=== PATIENT | female | born 1985 | race Two or more races ===

== ENCOUNTER 2019-06-26 12:41 | Inpatient (IN) | payer OTHER ==
[~2019-06-26] VITALS: Ht 162.6 cm; Wt 97.5 kg
[2019-06-26] VITALS (10 sets, daily range): BP systolic 102–123; BP diastolic 49–75
[~2019-06-26 12:41] MED LIST: Chloraseptic Spray 20mL Bottle ORAL PRN; Cyclobenzaprine 10mg Tab ORAL PRN; HYDROcodone/Acetamin 10/325 tab ORAL PRN; HYDROcodone/Acetamin 5/325 tab ORAL PRN; Hydromorphone 0.5mg/0.5ml inj IVP PRN; Ketorolac 30mg Inj ONE; Lacri-Lube Opth Oint 3.5gm ONE; Lidocaine 1% MPF 10mg/ml 5ml ONE; Midazolam 2mg/2ml Inj ONE; Milk of Magnesia 30ml Ud ORAL PRN; Rocuronium Bromide 50mg/5ml Inj IV ONE; ceFAZolin sod 1 GM in NS 55 ML IVPB ONE; fentaNYL 100 mcg/2 mL IV ONE
[2019-06-26] MEDS ORDERED: Thrombin 5000 units TOPIC ONE (12:49)
[2019-06-26] MEDS ORDERED: Vancomycin 1gm vial IVPB ONE (12:49)
[2019-06-26] MEDS ORDERED: Bacitracin 50000 Units Vial ONE (12:50)
[2019-06-26] MEDS ORDERED: Gelfoam Size TOPIC ONE (12:50)
[2019-06-26] MEDS ORDERED: Bupivacaine w/Epi 0.5% 30ml Vial INJ ONE (12:50)
[2019-06-26] MEDS ORDERED: TRAMADOL HCL50 MG ORAL (13:23)
[2019-06-26] MEDS ORDERED: ROBAXIN-500MG ORAL (13:23)
[2019-06-26] MEDS ORDERED: Midazolam 2mg/2ml Inj ONE (13:30)
[2019-06-26] MEDS ORDERED: Sterile Water Irrig 1000ml IRRIG ONE (13:30)
[2019-06-26] MEDS ORDERED: LR 1000ml ONE (13:30)
[2019-06-26] MEDS ORDERED: Glycopyrrolate 0.2mg/ml 1ml Vial ONE (13:30)
[2019-06-26] MEDS ORDERED: Succinylcholine 20mg/ml 10ml vial ONE (13:30)
[2019-06-26] MEDS ORDERED: Propofol 1,000mg/ 100ml btl IV ONE (13:30)
[2019-06-26] MEDS ORDERED: Neostigmine 1mg/ml 10ml Inj ONE (13:30)
--- NOTE | 2019-06-26 13:37 | Pre-Procedure Note/Attestation ---
Pre-Procedure Note/Attestation Complete Prior to Procedure Procedure Narrative: l5s1 laminectomy and decompression Indications for Procedure Pre-Operative Diagnosis: l5s1 lipomatosis/stenosis Attestation I attest that I discussed the nature of the procedure; its benefits; risks and complications; and alternatives (and the risks and benefits of such alternatives ), prior to the procedure, with the patient (or the patient's legal public utilities sales representative). I attest that, if there was a reasonable possibility of needing a blood transfusion, the patient (or the patient's legal public utilities sales representative) was given the [facility] standardized written summary, pursuant to the Rashard Anay Blood Safety Act ([place] Health and Safety Code # 1645, as amended). I attest that I re-evaluated the patient just prior to the surgery and that there has been no change in the patient's H&P, except as documented below: Cesar Jones MD Jun 26, 2019 13:37
[2019-06-26] MEDS ORDERED: NS Irrig 1000ml IRRIG ONE ×2 (14:05→14:09)
[2019-06-26] MEDS ORDERED: Morphine Sulfate 10mg/ml Inj ONE (14:33)
[2019-06-26] MEDS ORDERED: Sodium Chloride 10ml vial INJ ONE (14:34)
[2019-06-26] MEDS ORDERED: LR 1000ml 1,000 ML IVLG SCH (14:41)
[2019-06-26] MEDS ORDERED: Ketorolac 30mg Inj IV PRN (14:45)
[2019-06-26] MEDS ORDERED: Acetaminophen (Non formulary) 100 ML IV ONE (14:45)
[2019-06-26] MEDS ORDERED: Metoclopramide 10mg/2ml Inj IVP PRN (14:45)
[2019-06-26] MEDS ORDERED: Hydromorphone 0.5mg/0.5ml inj IVP PRN (14:45)
[2019-06-26] MEDS ORDERED: Meperidine 50mg/ml Inj(FOR RIGORS ONLY) IVP PRN (14:45)
[2019-06-26] MEDS ORDERED: DiphenhydrAMINE 50mg/ml Inj IVP PRN (14:45)
[2019-06-26] MEDS ORDERED: Midazolam 2mg/2ml Inj IVP PRN (14:45)
--- NOTE | 2019-06-26 14:50 | Anethesia Preoperative Eval ---
Anesthesia Pre-op PMH/ROS General Date of Evaluation: Jun 26, 2019 Time of Evaluation: 13:15 Anesthesiologist: Kaycee ASA Score: ASA 2 Mallampati Score Class I : Soft palate, uvula, fauces, pillars visible Class II: Soft palate, uvula, fauces visible Class III: Soft palate, base of uvula visible Class IV: Only hard plate visible Mallampati Classification: Class II Surgeon: Karen Diagnosis: Lumbar radiculopathy Surgical Procedure: L5-S1 laminotomy Anesthesia History: none Family History: no anesthesia problems Allergies: Coded Allergies: NAPROXEN (Verified Adverse Reaction, Severe, dizziness, drowsiness, sleepiness, 06/26/19) Medications: see eMAR Patient NPO?: Yes NPO Date: Jun 25, 2019 NPO Time: 2329 Past Medical History Cardiovascular: Denies: HTN, CAD, SC, valve dz, arrhythmia, other Pulmonary: Denies: asthma, COPD, EU[place], other Gastrointestinal/Genitourinary: Reports: GERD; Denies: CRI, ESRD, other Neurologic/Psychiatric: Reports: depression/anxiety, other - chronic pain Endocrine: Denies: DM, hypothyroidism, steroids, other HEENT: Denies: cataract (L), cataract (R), glaucoma, [place] (L), [place] (R), other Hematology/Immune: Denies: anemia, DVT, bleeding disorder, other Musculoskeletal/Integumentary: Denies: OA, RA, DJD, DDD, edema, other Other: obesity PMH Narrative: as above PSxH Narrative: Cholecystectomy Anesthesia Pre-op Phys. Exam Physician Exam Last Vital Signs Date Time Temp Pulse Resp B/P (MAP) Pulse Ox O2 Delivery O2 Flow Rate FiO2 06/26/19 13:31 Room Air 06/26/19 13:24 98.0 81 18 123/75 (91) 97 Constitutional: NAD Neurologic: CN 2-12 intact Cardiovascular: RRR Respiratory: CTA Gastrointestinal: S/NT/ND Airway Exam Mallampati Score: Class II MO: full Neck: flexible ROM: full Teeth: intact Dentures: no upper, no lower Anesthesia Pre-op A/P Labs see chart Urine Test Test 06/26/19 13:00 Urine HCG, Qualitative Negative (NEGATIVE) Studies Pre-op Studies: EKG - SR Risk Assessment & Plan Assessment: ASA 2 Plan: GA with ETT neuromonitoring Status Change Before Surgery: No Pre-Antibiotics Drug: Ancef 2gr. Given Within 1 Hr of Incision: Yes Time Given: 14:22 Jose G Benoit MD Jun 26, 2019 14:50
--- NOTE | 2019-06-26 15:42 | Brief Operative Note ---
Immediate Post Operative Note Operative Note Pre-op Diagnosis: l5s1 lipomatosis/stenosis Procedure: l5 and S1 B laminectomy Post-op Diagnosis: same as pre-op Findings: consistent w/pre-op dx studies Surgeon: tarik Motion And Time Study Teacher: kenia saha Anesthesiologist: lasha Anesthesia: general Specimen: none Complications: none Condition: stable Fluids: 1L Estimated Blood Loss: minimal Drains: hemovac Implant(s) used?: No Cesar Jones MD Jun 26, 2019 15:42
[2019-06-26] MEDS ORDERED: Milk of Magnesia 30ml Ud ORAL PRN (15:45)
--- NOTE | 2019-06-26 16:14 | Immediate Post-Op Evaluation ---
Immediate Post-Op Evalulation Immediate Post-Op Evalulation Procedure: L5-S1 laminotomy with discectomy and decompression Date of Evaluation: Jun 26, 2019 Time of Evaluation: 16:13 IV Fluids: 1000 Blood Products: none Estimated Blood Loss: 50 Urinary Output: none Blood Pressure Systolic: 112 Blood Pressure Diastolic: 64 Pulse Rate: 78 Respiratory Rate: 22 O2 Sat by Pulse Oximetry: 99 Temperature (Fahrenheit): 98.3 Pain Score (1-10): 1 Nausea: No Vomiting: No Complications none Patient Status: reacts, patent, extubated, none Hydration Status: adequate Jose G Benoit MD Jun 26, 2019 16:14
--- NOTE | 2019-06-26 16:57 | Diagnostic Imaging Report ---
INDICATION: Pain, intraoperative TECHNIQUE: Intraoperative imaging Fluoroscopy time: 6.3 seconds Total dose: 0.75273 mGym2 Total number of images: One COMPARISON: None FINDINGS: Intraoperative images demonstrate surgical tool posterior what is presumably the L5-S1 disc. IMPRESSION: Intraoperative imaging, as described
--- NOTE | 2019-06-26 16:57 | Diagnostic Imaging Report ---
INDICATION: Pain, intraoperative TECHNIQUE: Intraoperative imaging Fluoroscopy time: 6.3 seconds Total dose: 0.22753 mGym2 Total number of images: One COMPARISON: None FINDINGS: Intraoperative images demonstrate surgical tool posterior what is presumably the L5-S1 disc. IMPRESSION: Intraoperative imaging, as described
--- NOTE | 2019-06-26 17:30 | NUR ---
NURSE NOTES: Pt was transferred from PACU via hospital bed. NC 3L/min. c/o of pain 10/10. Will give pain med as ordered. IV on R hand 18g noted. hemo-vac on lumbar area noted. Orientation on new unit given. Belongings were accounted. at the bedside. Bed in the lowest and locked. Call light within reach. Will continue to monitor
[2019-06-26] MEDS: Docusate 100mg cap ORAL SCH (17:56)
[2019-06-26] MEDS: D5 1/2NS 1,000 ML IV SCH (17:56)
[2019-06-26] MEDS ORDERED: HYDROmorphone 1mg/ml Carpuject IVP SCH (18:36)
[2019-06-26] MEDS ORDERED: HYDROcodone/Acetamin 10/325 tab ORAL PRN (18:45)
[2019-06-26] MEDS ORDERED: oxyCODONE 5mg IR tab ORAL PRN (18:45)
--- NOTE | 2019-06-26 19:26 | NUR ---
HAND-OFF: Report given to MEEK Zhang.
--- NOTE | 2019-06-26 19:30 | NUR ---
NURSE NOTES: Received report & pt from MEEK Jones. Pt lying in bed, a&ox4, at bedside, on O2 via NC @ 3LPM. No s/s of acute distress & c/o 2/10 pain at this time. Hemovac intact. Surgical dressing C/D/I. IV site intact with IVF running as ordered. Call light within reach. Plan of care discussed.
--- NOTE | 2019-06-26 21:46 | Operative Note - Dictated ---
DATE OF OPERATION: 06/26/2019 SURGEON: Cesar Jones MD. MARKETING INTELLIGENCE MANAGER: Dariusz Martínez PA-C ANESTHESIOLOGIST: Jose G Benoit M.D. ANESTHESIA TYPE: General endotracheal anesthesia. POSTOPERATIVE DIAGNOSES: 1. Spinal stenosis, L5-S1 with radiculopathy both lower extremity, right worse than left. 2. Epidural lipomatosis. POSTOPERATIVE DIAGNOSES: 1. Spinal stenosis, L5-S1 with radiculopathy both lower extremity, right worse than left. 2. Epidural lipomatosis. PROCEDURES: 1. Bilateral hemilaminotomy of L5 and superior one-half of S1. 2. Removal of epidural fat and decompression of spinal cord. 3. Use of operating microscope. 4. Use of fluoroscopy. ESTIMATED BLOOD LOSS: Minimal. COMPLICATIONS: None. DRAINS PLACED: Medium Hemovac. INDICATIONS: The patient is a 34-year-old with fairly severe back and both right greater than left lower extremity radiculopathic pain. She has radiographic findings of epidural lipomatosis at L5-S1. Nonsurgical options were discussed. Surgical options were discussed. The patient elected to proceed with surgical options. RISKS NOTE: The patient was explained in detail risks, benefits of surgery to include, but not be limited to those of bleeding, infection, damage to nerves, vessels, tendons, anesthetic risk, allergic reaction, aspiration, possibly . The patient understood and wished to proceed. OPERATIVE PROCEDURE IN DETAIL: The patient was taken to the operative suite. After general endotracheal anesthesia was obtained, she was turned prone onto a Yonatan frame. The back was prepped and draped in usual sterile fashion. Spinal needles were placed at what was felt to be the L3-L4 and L4-L5 level; however, indeed this was L2-L3 and L3-L4. An incision was then marked out and subcutaneous infiltration of Marcaine with epinephrine was made. At this point, then the incision was carried down to the spinous process of L4 through S1. Please note, due to the patient's obesity, a much larger incision was required in order to achieve adequate visualization. At this point, subperiosteal dissection was carried out from L4 through S1. Operating microscope was brought in place. Self-retaining retractor was put in the right side only L5-S1. At this point, using a high-speed drill, the lamina of L5 was drilled out. Ligamentum flavum was then removed in a piecemeal fashion. Medial facetectomy on the right was achieved. The superior lamina was removed with Kerrison punch up to approximately one half down to S1 in order to decompress the nerve roots. Extensive epidural fat was encountered, which was removed with a combination of curette and suction. Meticulous hemostasis was achieved with FloSeal. At this point, once satisfied with the decompression and the fact that the dural sac did return back to a non-compress and pulsating structure. This area was packed off and then identical fashion, the left side was addressed hemilaminectomy at L5 and S1, left side was performed ligamentum flavum was removed and epidural fat formation was removed. Neural foraminotomies were performed and noted to be patent. There was mild arthrosis of the facet joints bilaterally. At this point, once satisfied with the decompression, copious irrigation was performed due to the patient's obesity. A deep medium Hemovac drain was placed on the left side. The patient also received 500 mg of vancomycin deep to the fascia as well as 500 mg superficial to the fascia. Fascia was repaired using #1 Vicryl and subcutaneous closure using 2-0 Vicryl. Dermabond, 4x4s, and Tegaderm was applied. The patient was subsequently turned onto her back, awakened, extubated, and transferred to recovery room in stable condition. Cesar Jones M.D. DR: BRANDON JOB#: [id number] CC:
[2019-06-26] MEDS: ceFAZolin sod 1 GM in D5W 55 ML IV SCH (22:48)
[2019-06-27 04:00] VITALS: BP 113/64
[2019-06-27] MEDS: D5 1/2NS 1,000 ML IV SCH (04:14)
[2019-06-27] MEDS: HYDROmorphone 1mg/ml Carpuject IVP PRN ×2 (04:23→09:15)
--- NOTE | 2019-06-27 06:30 | NUR ---
NURSE NOTES: Dr. Thomas removed pt's hemovac. Dressing applied by . No bleeding.
[2019-06-27] MEDS: ceFAZolin sod 1 GM in D5W 55 ML IV SCH (06:56)
--- NOTE | 2019-06-27 07:10 | NUR ---
HAND-OFF: Report given to MEEK Jones. Rounds done. Pt in stable condition.
--- NOTE | 2019-06-27 07:30 | Consultation ---
DATE OF CONSULTATION: 06/26/2019 CONSULTING PHYSICIAN: Inocencio Thomas M.D. REFERRING PHYSICIAN: Cesar Jones M.D. REASON FOR CONSULTATION: Acute pain consult. HISTORY OF PRESENT ILLNESS: Dear Dr. Cesar Jones, I thank you kindly for consulting me to evaluate and render an opinion as to how to proceed in the management of the patient's acute postoperative lumbar spine pain after her lumbar spine surgery today. The patient is a 34-year-old woman who injured her lumbar spine in a work-related injury. The patient complained of excruciating postoperative pain despite multiple bolus doses of pain medications already trialed in the recovery room and on orthopedic floor. At this point, you consulted me to help with the patient's postoperative pain management. I performed a detailed history and physical examination. I discussed the case with the hospital pharmacist, Joyce along with yourself, Dr. Jones, and the orthopedic floor nurse. I spent over 75 minutes in consultation with an additional 30 minutes in medical record review. Multiple records reviewed from the patient's medical chart including utilization review and surgical authorization by the insurance carrier, authorizing surgery as certified. Further record review include preoperative history and physical by Dr. Diego Mcguire dated June 20, 2019 including diagnostic testing. Multiple records were reviewed from today's date of surgery, June 26, 2019 at [facility], including consent for surgical treatment, consent for anesthesia, consent for blood products, medication administration record, medication reconciliation order form, PACU record, PACU orders, anesthesia record, pre- and post-anesthesia evaluation record. Surgical invasive procedure checklist, perioperative nursing plan of care, 24-hour medical and surgical flow sheet, initial nursing assessment, guidelines for prophylactic antibiotics, guidelines for DVT prophylaxis, Rizzo-Pollard diagram for cognitive disability. PAST MEDICAL HISTORY: 1. Acute postoperative lumbar spine pain, status post lumbar spine decompressive surgery by Dr. Cesar Jones in May 2019. 2. Work-related injury. 3. Heavy tobacco user. 4. Obesity. MEDICATIONS AT HOME: Tramadol. PAST SURGICAL HISTORY: Cholecystectomy in 2009. FAMILY HISTORY: Hypertension malignancy and kidney stones. SOCIAL HISTORY: The patient actively smokes at least a pack of tobacco daily. I did community health counselor the patient to stop smoking. ALLERGIES: Naprosyn. REVIEW OF SYSTEMS: Per attending physician. PHYSICAL EXAMINATION: GENERAL: Age 34. Height 5 feet 4 inches. Weight 230 pounds. Body mass index 35. VITAL SIGNS: Pain level 9/10 on the visual analog pain scale. Afebrile, pulse 65, respirations 13, blood pressure 120/60, pulse oximetry 100%. HEENT: Normocephalic and atraumatic. CHEST: Mildly barrel chested. No wheezes, rales, rhonchi, or accessory muscle use noted. ABDOMEN: Obese. Positive bowel sounds. MUSCULOSKELETAL: Lumbar spine painful by incision area with minimal paraspinal muscle spasms appreciated. Hemovac drain holding suction. Pain with log-rolling and range of motion. NEUROLOGIC: Detailed neurologic exam per Dr. Jones. BREASTS/GENITOURINARY: Deferred. LABORATORY AND DIAGNOSTIC DATA: Diagnostic testing from June 20, 2019 shows glucose 84, sodium 140, potassium 3.7, chloride 105, bicarb 25, creatinine 0.7. Calcium 9.5. Total protein 7.0, albumin 4.1. AST 13, ALT 21, and alkaline phosphatase 92, total bilirubin 0.4. TSH 1.2. Glycosylated hemoglobin normal at 5. White count 15, hematocrit 48, and platelets 300,000. INR 1.0, PTT 30. A 12-lead EKG shows left axis deviation, sinus tachycardia, heart rate 105. Pulmonary function testing shows moderate restrictive lung disease. MRI lumbar spine dated January 04, 2019 shows prominent epidural fat at L5-S1 resulting in abrupt tapering of the thecal sac. IMPRESSION: 1. Acute postoperative lumbar spine pain, status post lumbar spine decompressive surgery by Dr. Cesar Jones in May 2019. 2. Work-related injury. 3. Heavy tobacco user. 4. Obesity. TREATMENT RECOMMENDATIONS: I have devised the following analgesic plan to help with this patient's pain control postoperatively. I added Fioricet one tablet orally every 8 hours p.r.n. for headache symptoms. I have ordered Tylenol p.r.n. as an antipyretic. I have asked the nursing team to place Chloraseptic spray at the bedside to help with topical sore throat complaints. I have ordered a dose of Catapres 0.1 mg orally every 8 hours in case of systolic blood pressure readings greater than 160 mmHg. I have ordered Flexeril 10 mg orally every 8 hours p.r.n. for muscle spasm. I have added Benadryl 25 mg orally every 6 hours p.r.n. for itching symptoms. I started her on two different doses of Lynndyl starting with 5 mg orally every three hours p.r.n. for mild pain. I have ordered Lynndyl 10 mg orally every three hours pain for moderate pain. I have ordered a dose of Dilaudid 0.5 mg intravenously every two hours p.r.n. for severe breakthrough pain. After this dose was trialed, her pain level did decrease from 9/10 to 6/10. Therefore, I spoke with the hospital pharmacist to double dose of Dilaudid to 1 mg intravenously every three hours p.r.n. for severe pain. I empirically placed the patient on Protonix 40 mg nightly for GI ulcer prophylaxis along with p.r.n. dose of Mylanta 30 mL every 6 hours in case of any GERD symptom exacerbation. I have ordered milk of magnesia as a rescue laxative. I have ordered Zofran 4 mg intravenously every 4 hours p.r.n. as an antiemetic agent as a first-line antiemetic agent, with a rescue second-line agent of Phenergan 12.5 mg intramuscularly every 8 hours p.r.n. With her heavy tobacco usage, I have ordered 21 mg dose of nicotine patch to help reduce nicotine withdrawal agitation which may exacerbate her pain complaints. I will defer DVT prophylaxis to the surgeon. Inocencio Thomas M.D. DR: MARY JOB#: [id number] CC:
--- NOTE | 2019-06-27 07:34 | 48 Hour Post Anesthesia Eval ---
Post Anesthesia Evaluation Procedure: L5-S1 laminotomy with discectomy and decompression Date of Evaluation: Jun 27, 2019 Time of Evaluation: 06:11 Blood Pressure Systolic: 113 0: 64 Pulse Rate: 54 Respiratory Rate: 16 Temperature (Fahrenheit): 98.3 O2 Sat by Pulse Oximetry: 95 Airway: patent Nausea: No Vomiting: No Pain Intensity: 2 Hydration Status: adequate Cardiopulmonary Status: Stable Mental Status/LOC: patient returned to baseline Follow-up Care/Observations: 0 Post-Anesthesia Complications: 0 Follow-up care needed: N/A Lobo Clay MD Jun 27, 2019 07:34
--- NOTE | 2019-06-27 07:39 | NUR ---
NURSE NOTES: Received pt in bed, AAO x 4. Room air. No c/o of pain/distress at this moment. IV on R hand 18g intact, running ancef. Side rails x 2. Bed in the lowest and locked. Call light within reach. Will continue to monitor
[2019-06-27 08:00] VITALS: BP 127/71
[2019-06-27] MEDS: Docusate 100mg cap ORAL SCH (08:35)
--- NOTE | 2019-06-27 08:36 | Orthopedic Spine Progress Note ---
Ortho Spine - Progress Note Subjective Symptoms: c/o post-op back pain, improved - as compared to pre-op Objective Vital Signs: Last 24 Hour Vital Signs Date Time Temp Pulse Resp B/P (MAP) Pulse Ox O2 Delivery O2 Flow Rate FiO2 06/27/19 07:34 54 16 95 06/27/19 04:00 98.3 54 16 113/64 (80) 95 06/26/19 21:00 Nasal Cannula 2.0 06/26/19 20:00 97.8 58 18 112/65 (81) 97 06/26/19 17:30 97.4 61 16 108/49 (68) 95 06/26/19 17:05 97.9 65 13 118/58 100 Nasal Cannula 3 06/26/19 16:53 97.9 06/26/19 16:53 97.9 06/26/19 16:50 57 15 113/62 99 Nasal Cannula 3 06/26/19 16:35 62 18 116/64 100 Nasal Cannula 3 06/26/19 16:25 59 17 111/64 100 Simple Mask 6 06/26/19 16:15 66 23 114/64 100 Simple Mask 6 06/26/19 16:14 78 22 99 06/26/19 16:10 68 22 112/64 100 Simple Mask 6 06/26/19 16:05 98.1 81 24 102/60 98 Simple Mask 6 06/26/19 13:31 Room Air 06/26/19 13:24 98.0 81 18 123/75 (91) 97 I&O: Intake and Output 06/26/19 06/27/19 19:00 07:00 Intake Total 1100 ml 1160 ml Output Total 50 ml Balance 1050 ml 1160 ml Intake Oral 360 ml IV Total 1100 ml 800 ml Output Estimated Blood Loss 50 ml # Voids 1 4 Wound: clean, intact Drains: hemovac - dc'd Neuro Status: normal Assessment Procedure Performed: l5 and S1 B laminectomy Plan Plan: PT, discharge plan Cesar Jones MD Jun 27, 2019 08:36
--- NOTE | 2019-06-27 10:15 | NUR ---
PT EVALUATION NOTE Patient seen for initial evaluation. Patient presents with impaired functional mobility and pain s/p lumbar surgery. Patient educated in back precautions and proper log roll technique for in/OOB. Patient able to perform bed mobility and transfer tasks with supervision/SBA, no assistive device. Patient able to ambulate 200 ft with supervision/SBA, no assistive device, with steady gait. Patient will benefit from skilled inpatient PT intervention to address compliance with back precautions for increased independence and safety with functional mobility. Recommend discharge home once medically cleared by MD. Recommend elevated toilet seat for home use. Addendum: 06/27/19 at 1057 by BERHANE MORLEY PT Amended: Links added.
[2019-06-27] MEDS ORDERED: NORCO 10-325 T1 EACH ORAL (11:48)
--- NOTE | 2019-06-27 12:00 | NUR ---
NURSE NOTES: Patient was discharged to home via private vehicle accompanied by boyfriend. Escorted pt to first floor. ID and IV was removed. No s/s of infection. Dressing was changed on the surgical site to 4x4 and tegaderm per dr's order. Prescription and discharge instructions were given and to follow up with dr. Jones. Belongings and raised toilet is given to patient.
--- NOTE | 2019-06-27 14:30 | Progress Note ---
DATE: 06/27/2019 ACUTE PAIN MANAGEMENT PHYSICIAN PROGRESS NOTE MEDICATIONS: Medication administration record reviewed. Medications include IV fluids, Colace, Protonix, nicotine patch, Ancef. PRN medications include Tylenol, Zofran, Benadryl, Mylanta, Phenergan, Flexeril, Catapres, Chloraseptic spray, Fioricet, Restoril, milk of magnesia, [place], oxycodone, Dilaudid. LABORATORY STUDIES: No interval laboratory studies. OBJECTIVE: VITAL SIGNS: Within normal limits. Afebrile, pulse 61, respirations 16, blood pressure 113/64, oxygen saturation 95% on room air. I saw the patient at the bedside with the nurse RNLeatha, and the charge nurse, Ailyn EDEN. I discussed the case with the surgeon, Dr. Jones. The patient's boyfriend is at a local hotel and will be able to assist the patient with activities of daily living once they return home. The patient is feeling much better with the increased dose of Dilaudid and the application of nicotine patch. She has been able to ambulate in and out of bed and is able to log-rolling in the bed much more easily with better analgesic relief. She has been using primarily the IV Dilaudid here in the hospital. She states that she already has a supply of Robaxin at home, which does not do much. She states that Soma has worked well in the past as has [place]. I will leave a prescription for outpatient usage for [place] quantity of 60 10/325 tablets along with a quantity of 40 Soma tablets 350 mg. The patient is tolerating clear liquids well. She is quite hungry without any nausea symptoms. I will advance her to regular diet right away. I will Hep-Lock her IV fluids since she is drinking fluids well and maintaining adequate hydration. The patient is voiding urine well. Topical Chloraseptic spray is at the bedside to help with postoperative sore throat complaints. The patient is in good spirits and shows no signs of anxiety. The patient denies shortness of breath or chest pain. She is moving all extremities x4 and appears grossly neurologically intact. Output from the indwelling lumbar spine drain catheter overnight was 60 mL for the past 15 hours since she arrived on orthopedic floor from surgery. The patient turned herself to the prone position where examined the lumbar spine dressing. Dressing appeared clean and dry. I removed the OpSite and the incision line remained still under the surgical Telfa, which I left intact. The drain hole site appeared clean and dry. With the Hemovac drain taken off of suction, and end-expiration, I personally removed the indwelling lumbar spine drain catheter. The tip was intact. Alcohol swabbing was applied generously over the drain hole site. Finally, sterile 4 x 4 gauze was laid over the incision area and drain hole site, which was then covered with a sterile 6 inch x 6 inch island bordered gauze dressing. There were no complications. Inocencio Thomas M.D. DR: NABIL JOB#: [id number] CC:
--- NOTE | 2019-06-27 17:06 | NUR ---
CASE MANAGEMENT: INITIAL REVIEW 34YR OLD FEMALE HERE FOR ELECTIVE SURGERY CC:BACK PAIN SI:LUMBAR RADICULOPATHY 98.0 81 18 123/75 97% ON RA HCG QUAL- NEGATIVE IS:LAMINECTOMY AND DECOMPRESSION OF NERVE ROOT L5-S1 IN SURGERY NOW \: 3E MED SURG UNIT
--- NOTE | 2019-06-27 21:22 | Discharge Summary ---
Discharge Summary Hospital Course Date of Admission Jun 26, 2019 at 12:41 Date of Discharge Jun 27, 2019 at 11:57 Admitting Diagnosis Spinal stenosis, L5-S1 with radiculopathy both lower extremity, right worse than left. Reason for Hospitalization: elective surgery HPI Estela Burgess is a 34 year old female who was admitted on Jun 26, 2019 at 12: 41 for Multi Level Disc Protusions L3-L4,L4-L5,L5-S1 1-[address] Thomas pain specialist Procedures s/p 06/26/[address] Jones 1. Bilateral hemilaminotomy of L5 and superior one-half of S1. 2. Removal of epidural fat and decompression of spinal cord. 3. Use of operating microscope. 4. Use of fluoroscopy. Hospital Course status post surgery course of recovery uneventful initially IV fluids s/p perioperative antibiotics neurovascular status was closely monitored, and remained stable incision with dressing; clean, dry and intact pain management was addressed pain specialist followed; pain was controlled remained hemodynamically stable ambulated with PT fall precautions maintained; safe for ambulation DVT prophylaxis provided use of incentive spirometry was encouraged while in the bed tolerated diet , IV fluids discontinued GI prophylaxis provided antiemetics were on board as needed voided freely bowel regimen instituted patient was stable for discharge discharge instructions provided patient was counseled on smoking cessation follow up with surgeon in the office as instructed FINAL DIAGNOSES 1. Spinal stenosis, L5-S1 with radiculopathy both lower extremity, right worse than left. 2. Epidural lipomatosis. 3. s/p L5 and S1 bilateral hemilaminotomy 4. Work-related injury. 5. Heavy tobacco user. 6. Obesity. Discharge Medications Continued Medications: Hydrocodone Bit/Acetaminophen 10-325* ([place] 10-325*) 1 Each Tablet 1 TAB ORAL Q4H PRN for For Pain, #10 TAB 0 Refills (This prescription has been renewed) PRN PAIN Tramadol Hcl* (Ultram*) 50 Mg Tablet 50 MG ORAL Q6H PRN for For Pain, #12 TAB 0 Refills (This prescription has been renewed) Discharge Condition Upon Discharge: stable Discharge Disposition Patient was discharged to Home () Discharge Instructions Discharge Instructions Special Instructions I have been assigned to complete a D/C Summary on this account. I was not involved in the patient management Maia Garza NP Jun 27, 2019 21:22
== END 2019-06-27 11:57 | disposition home or self-care (01) | DRG 517 ==
LOC: SDSOVERFLO 12:41 → 3E 17:15
PROC: 01NR0ZZ Release Sacral Nerve, Open Approach (ICD-10-PCS; principal; 2019-06-26 15:00)
PROC: 00CU0ZZ Extirpation of Matter from Spinal Canal, Open Approach (ICD-10-PCS; principal; 2019-06-26 15:00)
PROC: 01NB0ZZ Release Lumbar Nerve, Open Approach (ICD-10-PCS; principal; 2019-06-26 15:00)
DX: M51.16 Intervertebral disc disorders with radiculopathy, lumbar region (principal); M51.17 Intervertebral disc disorders with radiculopathy, lumbosacral region; M48.07 Spinal stenosis, lumbosacral region; E88.2 Lipomatosis, not elsewhere classified; F17.200 Nicotine dependence, unspecified, uncomplicated; E66.9 Obesity, unspecified; Z90.49 Acquired absence of other specified parts of digestive tract; Z68.35 Body mass index [BMI] 35.0-35.9, adult; G89.18 Other acute postprocedural pain
CPT/HCPCS: 36415; 72020; 76000; 81025; 86850; 86900; 86901; 87081; 94003; 94150; J2250; J2405; J2710